=== PATIENT | female | born 1990 | race African-American/Black ===

== ENCOUNTER 2018-05-16 13:21 | Emergency (ER) | payer OTHER ==
[~2018-05-16] VITALS: Ht 167.6 cm; Wt 109.5 kg
[~2018-05-16 13:21] MED LIST: NAPROSYN500 MG PO
[2018-05-16 14:12] LABS: HEMATOCRIT 34.7 % (36.0-46.0); MCH 26.6 PG (29.0-34.0); MCHC 31.7 G/DL (30.0-36.0); PLATELET COUNT 263 K/uL (156-360); RBC DIS.WIDTH-CV 15.3 % (11.8-14.6); RBC DIS.WIDTH-SD 46.5 % (39-53); RED BLOOD COUNT 4.13 M/uL (3.80-5.20); WHITE BLOOD COUNT 5.3 K/uL (4.1-10.2)
[2018-05-16 14:20] LABS: ALBUMIN 4.1 g/dL (3.2-4.8); CHLORIDE 108 mEq/L (99-109); POTASSIUM 3.6 mEq/L (3.7-5.4); SODIUM 141 mEq/L (136-147)
[2018-05-16 14:22] LABS: GLUCOSE 105 mg/dL (70-99); TOTAL PROTEIN 7.9 g/dL (6.4-8.3)
[2018-05-16 14:24] LABS: TOTAL BILIRUBIN 0.6 mg/dL (0.0-1.0)
[2018-05-16 14:26] LABS: ALKALINE PHOSPHATASE 37 IU/L (3-129); CREATININE 0.7 mg/dL (0.6-1.3); GFR ESTIMATE (CALCULATED) > 59 mL/min/
[2018-05-16 14:27] LABS: UREA NITROGEN (BUN) 9 mg/dL (9-23)
[2018-05-16 14:28] LABS: AST (GOT) 11 IU/L (2-34)
[2018-05-16 14:29] LABS: ALT (GPT) 11 IU/L (3-49); LIPASE 6 U/L (1.0-51.0)
[2018-05-16 14:36] LABS: QUANTITATIVE HCG < 4.0 MIU/ML
[2018-05-16 15:30] LABS: APPEARANCE BLOODY ((CLEAR)); COLOR RED ((YELLOW)); LEUKOCYTES NEGATIVE; SPECIFIC GRAVITY 1.025 (1.000-1.030)
[2018-05-16 15:31] LABS: BILIRUBIN SMALL; BLOOD LARGE; GLUCOSE (STRIP) NEGATIVE; KETONES 160; NITRITE NEGATIVE; PH, URINE 6.5 (5-8); PROTEIN (STRIP) 300
[2018-05-16 15:33] LABS: RED BLOOD CELLS TNTC /HPF (0-5); UCUL ADDED? YES
[2018-05-16] MEDS ORDERED: IBUPROFEN800 MG PO (15:55)
[2018-05-16 16:15] VITALS: BP 146/100
== END 2018-05-16 16:17 | disposition home or self-care (01) ==
LOC: EME 13:21
PROVIDERS: Nurse Practitioner Family
DX: N94.6 Dysmenorrhea, unspecified (principal); R10.30 Lower abdominal pain, unspecified; N92.6 Irregular menstruation, unspecified; F17.200 Nicotine dependence, unspecified, uncomplicated; Z90.49 Acquired absence of other specified parts of digestive tract
CPT/HCPCS: 80053; 81003; 83690; 84702; 85027; 87086; 99281; 99284